=== PATIENT | female | born 1960 | race Caucasian/White ===

== ENCOUNTER 2017-05-17 01:13 | Inpatient (IN) ==
[2017-05-17] MEDS ORDERED: Naloxone 0.4 MG/ML INJ IVP PRN ×2 (05:12→15:07)
[2017-05-17] MEDS ORDERED: Acetaminophen 325 MG TABLET PO PRN ×2 (05:22→15:07)
[2017-05-17] MEDS ORDERED: 0.9 % Sodium Chloride 1,000 ML IVC SCH ×2 (05:30→15:07)
--- NOTE | 2017-05-17 05:44 | Internal Med History&Physical ---
Date of Encounter: 05/17/17 Time of Encounter: 04:20 Assessment and Plan (1) Bilateral arm pain Current visit: Yes Status: Acute Patient has recent flulike symptoms. Has bilateral biceps pain. Consider most likely viral myositis. - Check TSH, cortisol, CK, and ESR. Patient had CRP done in [facility], shows > 18.0 (high). - Give pain medication with Tylenol and Toradol as needed (2) UTI (urinary tract infection) Current visit: Yes Status: Acute Patient has UTI with CT abdomen shows right ureteral stone. Place patient on Rocephin. Consul urology for stone. Follow-up urine culture results Qualifiers: Urinary tract infection type: acute pyelonephritis Qualified Code(s): N10 - Acute pyelonephritis (3) Pneumonia Current visit: Yes Status: Acute CT chest shows left upper lobe pneumonia. Patient has recent flulike symptoms. Consider community acquired pneumonia. - Cover Patient with azithromycin and Rocephin Qualifiers: Pneumonia type: due to Pneumococcus Laterality: left Lung location: upper lobe of lung Qualified Code(s): J13 - Pneumonia due to Streptococcus pneumoniae (4) Ureteral stone Current visit: Yes Status: Acute CT abdomen shows obstructing ureteral stone. - Continue antibiotic for UTI - Urology consult was informed (5) DVT prophylaxis Current visit: Yes Status: Acute Heparin subcutaneously Internal Medicine - H&P: HPI Chief complaint: Bilateral arm pain Admitted From: Home Plans for Post Hospital Care: Home History of present illness: Ms. Lares is a 56 year old female with no known medical history and on no home medication presented to [facility] emergency room for bilateral arm pain. Patient said she has flulike symptoms about one week ago, with laryngitis. Patient's flulike symptoms has improved now. Patient started to have bilateral arm pain about one week ago. Left side is worse than right side. The pain located on bilateral biceps area, with tenderness, patient cannot stretch her left elbow joint to straight. Patient denies injury. Patient also complaining of cough for about 1 to 2 days. No shortness of breath, no chest pain. Patient has a mild on and off nausea but no vomiting. Patient denies abdominal pain. The patient denies urination symptoms. Patient has no diarrhea. In [facility] emergency room, she was a found leukocytosis. Further CT chest shows left upper lobe pneumonia. For further abdominal is CT shows right side obstructing ureteral stone. Patient was treated with Zosyn and IV fluid and transferred to our hospital for urology consult. When I saw patient in the floor, She is in no acute distress. Past Med Surg Social Fam HX - Past Medical History Psychiatric history: no psych history - Social History Smoking Status: Never smoker Alcohol use: rarely Drug use: none - Family History Mother History Unknown: Yes Internal Medicine - H&P: Meds 3 Allergy/AdvReac Type Severity Reaction Status Date / Time No Known Allergies Allergy Verified 05/17/17 04:14 All Systems PM: A 10-system review of systems was performed and is negative for pertinent findings except as documented above in the HPI. - Constitutional Vitals: Temp Pulse Resp BP Pulse Ox 97.7 F 83 16 102/57 96 05/17/17 04:03 05/17/17 04:03 05/17/17 04:03 05/17/17 04:03 05/17/17 04:03 General appearance: Present: A&O X 3, no acute distress, answers questions appropriately - Head Head exam: Present: atraumatic, normocephalic - Eye Eye exam: Present: PERRL, conjuntiva pink, sclera anicteric Pupils: Present: PERRL - Neck Neck exam general surgery: Present: supple, trachea midline. Absent: lymphadenopathy - Respiratory Respiratory exam: Present: CTAB. Absent: accessory muscle use, rales, rhonchi, wheezes - Cardiovascular Cardiovascular exam: Present: RRR, +S1, +S2. Absent: diastolic murmur, gallop, rubs, systolic murmur - GI/Abdominal GI/Abdominal exam: Present: normal bowel sounds, soft, no peritoneal signs. Absent: distended, tenderness Additional comments: CVAT negative bilaterally - Extremities Exam Extremities exam: Present: warm, radial pulses palpable and symmetrical. Absent : calf tenderness, cyanotic, pedal edema Additional comments: Bilateral biceps tenderness. Left arm cannot stretch to straight because of pain. - Neurological Exam Neurological exam: Present: CN II-XII intact, oriented X3, no focal deficits. Absent: pronater drift, facial droop, speech deficit - Skin Skin exam: Present: dry, intact
[2017-05-17] MEDS ORDERED: *HR* Heparin 5,000 UNIT/ML VIAL SQ SCH (06:00)
[2017-05-17] MEDS ORDERED: Azithromycin 500 MG in D5% in Water 250 ML IVPB SCH (06:00)
[2017-05-17] MEDS: Ketorolac 30 MG/ML VIAL IVP PRN ×2 (06:04→12:12)
[2017-05-17 06:37] LABS: Basophils % 0.3 %; Eosinophils # 0.7 K/mcL (0.0-0.6); Eosinophils % 4.4 %; Hematocrit 38.3 % (35.3-44.9); Hemoglobin 12.4 g/dL (11.5-15.4); Immature Granulocytes % 1.3 % (0-4); Lymphocytes # 1.3 K/mcL (0.6-4.6); Lymphocytes % 8.2 %; Mean Corpuscular HGB Conc 32.4 g/dL (31.6-35.5); Mean Corpuscular Hemoglobin 27.7 pg (28.0-33.3); Mean Corpuscular Volume 85.7 fL (83.0-100.0); Mean Platelet Volume 10.2 fL (9.4-12.4); Monocytes # 0.5 K/mcL (0.0-1.3); Monocytes % 3.4 %; Platelet Count 229 K/mcL (140-400); Red Blood Count 4.47 M/mcL (3.82-4.97); Red Cell Distribution Width 12.7 % (11.5-14.5); Segmented Neutrophils % 82.4 %
[2017-05-17 06:42] LABS: Alanine Aminotransferase 35 Units/L (7-52); Albumin 3.6 g/dL (3.5-5.7); Albumin/Globulin Ratio 1.2 (1.1-2.2); Alkaline Phosphatase 219 Units/L (34-104); Aspartate Amino Transferase 20 Units/L (13-39); BUN/Creatinine Ratio 14 (6-26); Bilirubin,Total 0.9 mg/dL (0.3-1.0); Blood Urea Nitrogen 11 mg/dL (6-20); Calcium 9.5 mg/dL (8.6-10.3); Carbon Dioxide 23 mEq/L (23-29); Chloride 107 mEq/L (98-107); Globulin 2.9 g/dL (2.4-3.5); Glucose 90 mg/dL (70-105); Osmolality,Calculated 283 (280-300); Potassium 4.2 mEq/L (3.5-5.1); Sodium 137 mEq/L (136-145); Total Protein 6.5 g/dL (6.4-8.9); eGFR For African Americans > 60 (> 60); eGFR For Non-African Americans > 60 (> 60)
[2017-05-17 06:56] LABS: INR 1.2; Prothrombin Time 12.6 Seconds (9.4-12.1)
[2017-05-17 06:58] LABS: Thyroid Stimulating Hormone 6.184 mcIU/mL (0.340-5.600)
--- NOTE | 2017-05-17 07:11 | Urology - Consult Note ---
Date of Encounter: 05/17/17 Time of Encounter: 07:09 - Assessment and Plan (1) Ureteral stone with hydronephrosis Current Visit: Yes Status: Acute Assessment and plan: I reviewed CT report. 1.6x0.7 cm right UPJ stone with hydronephrosis. report of questionable UTI. pt with leukocytosis. questionable pneumonia. flulike symptoms. I feel pt needs a ureteral stent today. a majority of her symptoms may be from the stone. not safe to perform insitu stone extraction bc of possible infection. procedure discussed including risks of injury to urinary tract and stent complications. Urology CN:HPI Consult date: 05/17/17 Reason for consult Urology: Hydronephrosis History of present illness: 56 yo transfer from [facility]. 2 weeks of pain and flulike symtoms. no hx of stones. CT scan with a 1.6 cm right UPJ stone with moderate hydro. denies fever. malaise, abd pain and B arms are sore. Past Med Surg Social Fam HX - Past Medical History Psychiatric history: no psych history - Social History Smoking Status: Never smoker Alcohol use: rarely Drug use: none - Family History Mother History Unknown: Yes Medications and Allergies 3 Allergy/AdvReac Type Severity Reaction Status Date / Time No Known Allergies Allergy Verified 05/17/17 04:14 Review of Systems - Constitutional fatigue, malaise, no chills - EENT Nose, mouth and throat: no dizziness - Cardiovascular no chest pain - Respiratory no cough - Gastrointestinal abdominal pain, nausea - Genitourinary Genitourinary: flank pain - Musculoskeletal back pain - Integumentary no erythema - Neurological no confusion - Psychiatric no anxiety - Hematologic/Lymphatic no easy bleeding - Allergic/Immunologic no throat swelling Exam Initial Vital Signs Temp Pulse Resp BP Pulse Ox 97.7 F 83 16 102/57 96 05/17/17 04:03 05/17/17 04:03 05/17/17 04:03 05/17/17 04:03 05/17/17 04:03 - General physical appearance Present: well developed, no distress - Eyes Present: PERRL, conjunctiva is clear - ENT Present: normal nares, no hearing loss - Neck Present: no masses, no lymphadenopathy - Respiratory Present: normal respiratory effort - Cardiovascular Cardiovascular exam IM: RRR - Abdomen Abdomen: Present: soft, suprapubic tenderness. Absent: masses - Integumentary Present: no rash, no growths - Neurologic Present: normal coordination. Absent: disoriented, confused Urology Results - Labs 05/17/17 05:51 05/17/17 05:51 Abnormal lab results WBC 15.8 K/mcL (4.3-11.1) H 05/17/17 05:51 MCH 27.7 pg (28.0-33.3) L 05/17/17 05:51 Neutrophils # 13.0 K/mcL (1.6-8.9) H 05/17/17 05:51 Eosinophils # 0.7 K/mcL (0.0-0.6) H 05/17/17 05:51 ESR 81 mm/hr (0-15) H 05/17/17 05:51 PT 12.6 Seconds (9.4-12.1) H 05/17/17 05:51 Alkaline Phosphatase 219 Units/L (34-104) H 05/17/17 05:51 TSH 6.184 mcIU/mL (0.340-5.600) H 05/17/17 05:51 Diabetes panel 05/17/17 Range/Units 05:51 Sodium 137 (136-145) mEq/L Potassium 4.2 (3.5-5.1) mEq/L Chloride 107 (98-107) mEq/L Carbon Dioxide 23 (23-29) mEq/L BUN 11 (6-20) mg/dL Creatinine 0.79 (0.60-1.20) mg/dL Glucose 90 (70-105) mg/dL Calcium 9.5 (8.6-10.3) mg/dL AST 20 (13-39) Units/L ALT 35 (7-52) Units/L Alkaline Phosphatase 219 H (34-104) Units/L Albumin 3.6 (3.5-5.7) g/dL Thyroid panel 05/17/17 Range/Units 05:51 TSH 6.184 H (0.340-5.600) mcIU/mL Calcium panel 05/17/17 Range/Units 05:51 Calcium 9.5 (8.6-10.3) mg/dL Albumin 3.6 (3.5-5.7) g/dL Pituitary panel 05/17/17 05/17/17 Range/Units 05:51 05:51 Sodium 137 (136-145) mEq/L Potassium 4.2 (3.5-5.1) mEq/L Chloride 107 (98-107) mEq/L Carbon Dioxide 23 (23-29) mEq/L BUN 11 (6-20) mg/dL Creatinine 0.79 (0.60-1.20) mg/dL Glucose 90 (70-105) mg/dL Calcium 9.5 (8.6-10.3) mg/dL TSH 6.184 H (0.340-5.600) mcIU/mL Adrenal panel 05/17/17 Range/Units 05:51 Sodium 137 (136-145) mEq/L Potassium 4.2 (3.5-5.1) mEq/L Chloride 107 (98-107) mEq/L Carbon Dioxide 23 (23-29) mEq/L BUN 11 (6-20) mg/dL Creatinine 0.79 (0.60-1.20) mg/dL Glucose 90 (70-105) mg/dL Calcium 9.5 (8.6-10.3) mg/dL Total Bilirubin 0.9 (0.3-1.0) mg/dL AST 20 (13-39) Units/L ALT 35 (7-52) Units/L Alkaline Phosphatase 219 H (34-104) Units/L Albumin 3.6 (3.5-5.7) g/dL All other labs normal. Consult Discharge Plan - Plan Referrals: Abraham Dawson DO [Primary Care Provider] -
[2017-05-17] MEDS ORDERED: cefTRIAXone 1,000 MG in Water for inj. (sterile) 20 ML 10 ML IVP SCH (09:00)
[2017-05-17 09:56] LABS: Bilirubin,Urine Negative (Negative); Blood,Urine Large (Negative); Clarity,Urine Clear (Clear); Color,Urine Yellow (Yellow); Glucose,Urine (UA) Normal (Normal); Ketones,Urine Negative (Negative); Leukocyte Esterase,Urine Small (Negative); Nitrite,Urine Negative (Negative); Protein,Urine 30 mg/dL (Neg-Trace); Specific Gravity,Urine 1.029 (1.010-1.025); Urobilinogen,Urine Normal (Normal)
[2017-05-17 10:00] LABS: Bacteria,Urine None Seen per hpf (None-Few); Hyaline Casts,Urine None Seen per lpf (None-Few); RBC,Urine 50-100 per hpf (0-3); Squamous Epithelial Cell,Urine Many per lpf (None-Few)
--- NOTE | 2017-05-17 12:38 | Anesthesia Evaluation PreOp ---
Date of Encounter: 05/17/17 Time of Encounter: 12:34 - Past History Planned Operation: Cystoscopy with Right Ureteral stent Cardiac History: Denies any Significant Hx Pulmonary History: Denies Any Significant HX CORRECTIONAL AGENCY DIRECTOR History: Denies Any Significant HX Other Medical History: Denies Any Significant HX Anesthesia History: No Prior Anesthetic Complications, Past Anesthesia (Exp. Lap.) : No Alcohol Use: rarely Drug use: none Medications and Allergies No Known Home Drugs 05/17/17 [History] 3 Allergy/AdvReac Type Severity Reaction Status Date / Time No Known Allergies Allergy Verified 05/17/17 08:56 - Meds/Allergy Pre-op Review Medications Reviewed: Yes Allergies Reviewed: Yes Beta Blockers on Current Med List: No Anesthesia Results - Labs 05/17/17 05:51 05/17/17 05:51 Anesthesia Exam Vital Signs/O2 Sat, Most Current Temp Pulse Resp BP Pulse Ox 98.5 F 100 16 103/50 100 05/17/17 11:00 05/17/17 11:00 05/17/17 11:00 05/17/17 11:00 05/17/17 11:00 Height: 5'3'' Weight: 166# NPO (# of Hours): > 8 hrs Pain Scale: 0 Pain Scale Used: Numeric (1 - 10) - HEENT Pupil (Motor): Pupils equal, EOMI Mallampati: II Teeth: Edentulous Denture Type: Upper: Complete, Lower: Complete Oral Opening: Greater than 3 - CORRECTIONAL AGENCY DIRECTOR LOC: Oriented CORRECTIONAL AGENCY DIRECTOR Motor: Normal RUE, Normal LUE, Normal RLE, Normal LLE, Normal Face CORRECTIONAL AGENCY DIRECTOR Sensory: Normal: RUE, LUE, RLE, LLE, Face - Cardiac Rhythm: Regular Murmur: None JVD: No Carotid Bruit: No - Pulmonary Breath Sounds: bilateral Clear Respiratory Effort: Symmetrical Anesthesia Assess/Plan ASA Score: 1 Modified Milagros Scale for Level of Consciousness: Cooperative, oriented, and tranquil Anesthetic Plan: General Autologous Blood: Yes Monitoring Plan: Standard Monitors Recovery Plan: PACU
[2017-05-17 12:39] LABS: Triiodothyronine (T3) Free 2.47 pg/mL (2.50-3.90)
[2017-05-17] MEDS ORDERED: Isovue-300 50 ML VIAL IVP ONE (13:20)
--- NOTE | 2017-05-17 13:21 | Event Note ---
Date of Encounter: 05/17/17 Time of Encounter: 13:20 I saw and evaluated Ms. Lares in preop. She has a large right renal stone. I recommend proceeding with a cystoscopy and right ureteral stent placement. I informed her of the risks of the surgery including but not limited to bleeding, infection, injury to other structures, need for further procedures, stent irritation, ureteral perforation, need for nephrostomy tube, need for open repair, risks unforeseen, and the risk of anesthesia. He is willing to proceed.
[2017-05-17] MEDS ORDERED: *HR* Midazolam HCl 2 MG/2 ML VIAL ONE (13:22)
[2017-05-17] MEDS ORDERED: *HR* Propofol 200 MG/20 ML VIAL IVP ONE (13:22)
[2017-05-17] MEDS ORDERED: *HR* FentaNYL (PF) 100 MCG/2 ML VIAL ONE (13:22)
[2017-05-17] MEDS ORDERED: Dexamethasone 4 MG/ML VIAL ONE (13:24)
[2017-05-17] MEDS ORDERED: Ondansetron 4 MG/2 ML VIAL ONE (13:24)
[2017-05-17] MEDS ORDERED: Acetaminophen IV 1,000 MG/100 ML INFUS..BTL ONE (13:25)
[2017-05-17] MEDS ORDERED: *HR* PHENYLEPHRINE 1,000 MCG/10 ML SYRINGE IVP ONE (13:50)
[2017-05-17] MEDS ORDERED: MORPHINE SUL Oral CONC 10 MG/0.5 ML ORAL.SYG SL PRN (13:55)
[2017-05-17] MEDS ORDERED: *HR* OxyCODONE Immed Rel 5 MG TABLET PO PRN (13:55)
[2017-05-17] MEDS ORDERED: *HR* Promethazine 25 MG/ML VIAL IVP PRN (13:55)
[2017-05-17] MEDS ORDERED: Dexamethasone 4 MG/ML VIAL IVP ONE (13:55)
[2017-05-17] MEDS ORDERED: Ketorolac 30 MG/ML VIAL ONE (13:56)
--- NOTE | 2017-05-17 14:08 | Operative Note ---
Date of procedure: 05/17/17 Pre-op diagnosis: Right ureteropelvic junction stone, possible UTI Post-op diagnosis: same Procedure: Cystoscopy, right ureteral stent placement. Implants: 6 Nepalese x 24 cm JJ stent Complications: none Anesthesia: GETA Surgeon: Juanito Gonzalez Was there an assistant superintendent present: No Estimated blood loss (cc): 1 Specimen: none Condition: stable Disposition: PACU Procedure in Detail: Indications: Jamee is a 56-year-old woman who has a history of nephrolithiasis. She had a CT which showed a right renal pelvis stone. She elected to undergo a cystoscopy and right ureteral stent placement. She was aware of the risks of the procedure including but not limited to bleeding, infection, injury to other structures, need for further procedures, stent irritation, need for nephrostomy tube, need for open repair, risks otherwise unforeseen, and the risk of anesthesia. She is willing to proceed. Procedure in Detail: After informed consent was obtained the patient was brought back to the operating room and placed in supine position. A time out was performed. General anesthesia was administered and a LMA was placed. She was then placed in the lithotomy position. She was prepped and draped in the usual sterile fashion. Cystoscopy was performed. The anterior urethra was normal. There was no evidence of bladder tumors. The ureteral orifices were in the normal orthotopic position. There was no duplication of the ureteral orifices. The Zip wire was placed in the right ureteral orifice. The wire went past the stone. A 6 Nepalese by 24cm JJ stent was then placed. The dangle strings were removed. A Almodovar catheter was then placed. The patient was then awakened from general anesthesia and brought to recovery room in good condition. All sponge, needle, and instrument counts were correct.
--- NOTE | 2017-05-17 14:34 | Anesthesia Evaluation Post Op ---
Date of Encounter: 05/17/17 Time of Encounter: 14:33 - Vital Signs Vital Signs: Vital Signs/O2 Sat, Most Current Temp Pulse Resp BP Pulse Ox 98.2 F 102 20 91/54 95 05/17/17 14:11 05/17/17 14:21 05/17/17 14:21 05/17/17 14:21 05/17/17 14:21 - Lungs Lungs: Clear Ascult./Percussion - Airway Airway: Non-obstructed - Cardiovascular Regular Rate - Mental Status Mental Status: Alert & Oriented, Answers Appropriately - Pain Pain Scale: 0 Pain Scale used: Numeric (1 - 10) - Nausea Vomiting Nausea Vomiting: Not Present - Hydration Hydration: Ice chips, Almodovar catheter - Discharge PostOp Status: Transfer Patient to floor
[2017-05-17] MEDS ORDERED: Ketorolac 30 MG/ML VIAL IVP PRN (15:07)
[2017-05-17] MEDS ORDERED: *HR* OxyCODONE/APAP 5/325 TABLET PO PRN (15:07)
[2017-05-17] MEDS: *HR* Heparin 5,000 UNIT/ML VIAL SQ SCH (17:55)
--- NOTE | 2017-05-17 19:45 | Event Note ---
Date of Encounter: 05/17/17 Time of Encounter: 19:40 S: She is s/p stents by urology. Feeling much better. Bilateral arm pain resolved. Now has nicole. On rocephin and azithromycin for pneumonia and ?UTI. She had elevated TSH this AM; free T3 and T4 ordered. No new complaints at this time. O: Vitals - Temp 98.5 degrees F., HR 100, RR 16, BP 103/50, O2 sat 100% on RA HEENT: NCAT, PERRLA, EOMI, hearing grossly intact, oropharynx benign Resp: CTAB, normal WOB, no W/R/R CV: RRR, normal S1 and S2, no M/R/G GI: Soft, NT/ND, no masses, normal BS, no HSP Skin: Warm, dry, no rashes/lesions/ulcers Psych: Normal mood and affect, no depression or anxiety A/P: 1) Ureteral Stone: S/P stent. Now has nicole. Doing better. Will monitor overnight. 2) CAP: Continue azithromycin and rocephin. 3) ?UTI: Continue rocephin. 4) Elevated TSH: Follow up on free T3/T4. Consider starting levothyroxine if low.
[2017-05-18 05:41] LABS: Basophils % 0.2 %; Hemoglobin 12.9 g/dL (11.5-15.4); Immature Granulocytes % 1.8 % (0-4); Mean Platelet Volume 10.3 fL (9.4-12.4); Red Cell Distribution Width 12.6 % (11.5-14.5)
[2017-05-18 05:43] LABS: Basophils # 0.1 K/mcL (0.0-0.2); Eosinophils # 0.1 K/mcL (0.0-0.6); Eosinophils % 0.4 %; Hematocrit 39.1 % (35.3-44.9); Lymphocytes # 0.7 K/mcL (0.6-4.6); Lymphocytes % 2.6 %; Monocytes # 0.5 K/mcL (0.0-1.3); Platelet Count 240 K/mcL (140-400)
[2017-05-18 05:54] LABS: BUN/Creatinine Ratio 18 (6-26); Blood Urea Nitrogen 13 mg/dL (6-20); Calcium 9.4 mg/dL (8.6-10.3); Carbon Dioxide 24 mEq/L (23-29); Chloride 107 mEq/L (98-107); Glucose 118 mg/dL (70-105); Osmolality,Calculated 289 (280-300); Potassium 4.4 mEq/L (3.5-5.1); Sodium 139 mEq/L (136-145); eGFR For African Americans > 60 (> 60); eGFR For Non-African Americans > 60 (> 60)
[2017-05-18] MEDS ORDERED: Azithromycin 500 MG in D5% in Water 250 ML IVPB SCH (06:00)
[2017-05-18] MEDS: *HR* Heparin 5,000 UNIT/ML VIAL SQ SCH ×2 (06:03→22:06)
[2017-05-18 06:19] LABS: Neutrophils # 23.3 K/mcL (1.6-8.9)
[2017-05-18 06:20] LABS: Platelet Estimate Normal (Normal)
--- NOTE | 2017-05-18 07:47 | Urology Progress Note ---
Date of Encounter: 05/18/17 Time of Encounter: 07:45 - Assessment and Plan (1) Ureteral stone with hydronephrosis Current Visit: Yes Status: Resolved Assessment and plan: s/p stent placement. urine clear. will remove cath. no further intervention from standpoint. will need outpatient stone surgery. will arrange and contact patient. ok to discharge from urology standpoint when other medical issues are stable. Progress Note Subjective: feels better Narrative: feeels better. decreasing arm pain. Objective Initial Vital Signs Temp Pulse Resp BP Pulse Ox 97.7 F 83 16 102/57 96 05/17/17 04:03 05/17/17 04:03 05/17/17 04:03 05/17/17 04:03 05/17/17 04:03 - General physical appearance Present: no distress - Genitourinary Urine Appearance: Present: Clear - Labs 05/18/17 05:01 05/18/17 05:01 Diabetes panel 05/18/17 Range/Units 05:01 Sodium 139 (136-145) mEq/L Potassium 4.4 (3.5-5.1) mEq/L Chloride 107 (98-107) mEq/L Carbon Dioxide 24 (23-29) mEq/L BUN 13 (6-20) mg/dL Creatinine 0.72 (0.60-1.20) mg/dL Glucose 118 H (70-105) mg/dL Calcium 9.4 (8.6-10.3) mg/dL Thyroid panel 05/17/17 Range/Units 05:51 TSH 6.184 H (0.340-5.600) mcIU/mL Calcium panel 05/18/17 Range/Units 05:01 Calcium 9.4 (8.6-10.3) mg/dL Pituitary panel 05/17/17 05/18/17 Range/Units 05:51 05:01 Sodium 139 (136-145) mEq/L Potassium 4.4 (3.5-5.1) mEq/L Chloride 107 (98-107) mEq/L Carbon Dioxide 24 (23-29) mEq/L BUN 13 (6-20) mg/dL Creatinine 0.72 (0.60-1.20) mg/dL Glucose 118 H (70-105) mg/dL Calcium 9.4 (8.6-10.3) mg/dL TSH 6.184 H (0.340-5.600) mcIU/mL Adrenal panel 05/18/17 Range/Units 05:01 Sodium 139 (136-145) mEq/L Potassium 4.4 (3.5-5.1) mEq/L Chloride 107 (98-107) mEq/L Carbon Dioxide 24 (23-29) mEq/L BUN 13 (6-20) mg/dL Creatinine 0.72 (0.60-1.20) mg/dL Glucose 118 H (70-105) mg/dL Calcium 9.4 (8.6-10.3) mg/dL - VTE Documentation of Mechanical Device: Intermittent pneumatic compression device Consult Discharge Plan - Plan Referrals: Abraham Dawson DO [Primary Care Provider] -
[2017-05-18] MEDS ORDERED: cefTRIAXone 1,000 MG in Water for inj. (sterile) 20 ML 10 ML IVP SCH (09:00)
--- NOTE | 2017-05-18 10:39 | Internal Med Progress Note ---
<Luis Farr R - Last Filed: 05/18/17 13:25> Date of Encounter: 05/18/17 - Constitutional Vitals: Temp Pulse Resp BP Pulse Ox 98.1 F 94 15 99/54 95 05/18/17 11:33 05/18/17 11:33 05/18/17 07:41 05/18/17 11:33 05/18/17 11:33 Internal Medicine: Result - Labs CBC & Chem 7: 05/18/17 05:01 05/18/17 05:01 Labs: Short CBC 05/18/17 Range/Units 05:01 WBC 25.1 H D (4.3-11.1) K/mcL Hgb 12.9 (11.5-15.4) g/dL Hct 39.1 (35.3-44.9) % Plt Count 240 (140-400) K/mcL Neutrophils # 23.3 H (1.6-8.9) K/mcL BMP 05/18/17 05:01 Sodium 139 Potassium 4.4 Chloride 107 Carbon Dioxide 24 BUN 13 Creatinine 0.72 Glucose 118 H Calcium 9.4 - ABG Interpretation ABG results: PT/INR, D-dimer PT 12.6 Seconds (9.4-12.1) H 05/17/17 05:51 - Impressions Impressions Fluoroscopy 05/17/17 00:00 IMPRESSION: Intraprocedural fluoroscopic spot images as above. See separate procedure report for more information. D/ / Jamie Huizar MD / Jamie Huizar MD Interpreting Provider: Jamie Huizar MD X-Ray 05/17/17 00:00 IMPRESSION: Intraprocedural fluoroscopic spot images as above. See separate procedure report for more information. D/ / Jamie Huizar MD / Jamie Huizar MD Interpreting Provider: Jamie Huizar MD Consult Discharge Plan - Plan Referrals: Abraham Dawson, [Primary Care Provider] - - Attending Attestation I performed an independent interview and exam of this pt. I agree with the findings, assessment and plan of Dr. Roberson, internal medicine financial intern. DC nicole today. Urol input appreciated. PT is doing well and may potentially be dc today. No cx data available. May consider dc on Levaquin to cover for UTI and CAP. Will discuss later on rounds today. Follow up CXR in 4 weeks. Urology follow up as planned. Arm pain is resolving. No clear etiology. <Johnny Roberson - Last Filed: 05/18/17 16:00> Date of Encounter: 05/18/17 Time of Encounter: 09:40 - Assessment and plan (1) Pneumonia Current Visit: Yes Status: Acute Assessment and plan: Community acquired pneumonia, improving WBC increased to 25, however clinically the patient improved I believe that the leukocytosis is likely reactive in nature, and in response to ureteral stenting The patient continues to have cough, however she feels that it is improving Azithromycin + Rocephin Day 2 Will transition to PO Levaquin, possible D/C Today. Qualifiers: Pneumonia type: due to Pneumococcus Laterality: left Lung location: upper lobe of lung Qualified Code(s): J13 - Pneumonia due to Streptococcus pneumoniae (2) Ureteral stone with hydronephrosis Current Visit: Yes Status: Resolved Assessment and plan: s/p Right ureteral stent Symptoms have largely resolved, she is no longer having significant pain WBC has increased, but clinically does not appear to have infection Urine output is sufficient Patient will require outpatient follow-up with urology (3) Hypothyroidism Current Visit: Yes Status: Acute Assessment and plan: Hypothyroidism not previously diagnosed Tsh 6.18, Low Free T3 and T4 I will start the patient on 50mcg levothyroxine She will require 3 week follow-up with PCP Qualifiers: Hypothyroidism type: acquired Qualified Code(s): E03.9 - Hypothyroidism, unspecified (4) Bilateral arm pain Current Visit: Yes Status: Acute Assessment and plan: Resolved (5) DVT prophylaxis Current Visit: Yes Status: Acute Assessment and plan: Heparin - Subjective Interval history: The patient says that she's feeling much better today. She still has some soreness in her arms, however it has largely resolved. She continues to have some cough, but it is not bothersome, and her abdominal and back pain have improved dramatically. - Constitutional Vitals: Temp Pulse Resp BP Pulse Ox 98.0 F 86 15 113/67 97 05/18/17 07:41 05/18/17 07:41 05/18/17 07:41 05/18/17 07:41 05/18/17 07:41 General appearance: Present: A&O X 3, no acute distress, answers questions appropriately Internal Medicine: Result - Labs CBC & Chem 7: 05/18/17 05:01 05/18/17 05:01 Labs: Short CBC 05/18/17 Range/Units 05:01 WBC 25.1 H D (4.3-11.1) K/mcL Hgb 12.9 (11.5-15.4) g/dL Hct 39.1 (35.3-44.9) % Plt Count 240 (140-400) K/mcL Neutrophils # 23.3 H (1.6-8.9) K/mcL BMP 05/18/17 05:01 Sodium 139 Potassium 4.4 Chloride 107 Carbon Dioxide 24 BUN 13 Creatinine 0.72 Glucose 118 H Calcium 9.4 - ABG Interpretation ABG results: PT/INR, D-dimer PT 12.6 Seconds (9.4-12.1) H 05/17/17 05:51 - Impressions Impressions Fluoroscopy 05/17/17 00:00 IMPRESSION: Intraprocedural fluoroscopic spot images as above. See separate procedure report for more information. D/ / Jamie Huizar MD / Jamie Huizar MD Interpreting Provider: Jamie Huizar MD X-Ray 05/17/17 00:00 IMPRESSION: Intraprocedural fluoroscopic spot images as above. See separate procedure report for more information. D/ / Jamie Huizar MD / Jamie Huizar MD Interpreting Provider: Jamie Huizar MD - VTE Documentation of Mechanical Device: Intermittent pneumatic compression device
[2017-05-18] MEDS: levoFLOXacin 750 MG TABLET PO SCH (16:17)
[2017-05-18] MEDS: *HR* OxyCODONE/APAP 5/325 TABLET PO PRN (16:23)
[2017-05-18] MEDS ORDERED: Ondansetron 4 MG/2 ML VIAL IVP PRN (22:25)
[2017-05-18] MEDS ORDERED: Ondansetron 4 MG/2 ML VIAL ONE (22:30)
[2017-05-19] MEDS: *HR* OxyCODONE/APAP 5/325 TABLET PO PRN (05:25)
[2017-05-19] MEDS: *HR* Heparin 5,000 UNIT/ML VIAL SQ SCH (05:26)
[2017-05-19 08:26] LABS: Basophils % 0.3 %; Eosinophils # 1.1 K/mcL (0.0-0.6); Eosinophils % 7.4 %; Hematocrit 37.4 % (35.3-44.9); Hemoglobin 11.9 g/dL (11.5-15.4); Immature Granulocytes % 1.1 % (0-4); Lymphocytes % 6.7 %; Mean Corpuscular HGB Conc 31.8 g/dL (31.6-35.5); Mean Corpuscular Hemoglobin 27.4 pg (28.0-33.3); Mean Platelet Volume 10.2 fL (9.4-12.4); Monocytes # 0.4 K/mcL (0.0-1.3); Monocytes % 2.7 %; Neutrophils # 12.3 K/mcL (1.6-8.9); Platelet Count 273 K/mcL (140-400); Red Blood Count 4.35 M/mcL (3.82-4.97); Red Cell Distribution Width 12.6 % (11.5-14.5); Segmented Neutrophils % 81.8 %
[2017-05-19] MEDS: levoFLOXacin 750 MG TABLET PO SCH (09:33)
--- NOTE | 2017-05-19 10:46 | Discharge Summary ---
<Luis Farr - Last Filed: 05/19/17 12:37> Orders not resulted at time of discharge: Pending orders 05/18/17 16:48 Culture,Blood,Additional [BC] Stat Date of Encounter: 05/19/17 Hospital course: Ms. Lares is a 56 year old female - Time Spent with Patient Total time spent providing and/or coordinating discharge services: - Discharge Medications Prescriptions: levoFLOXacin [Levaquin] 750 mg PO DAILY #3 tablet Levothyroxine [Synthroid] 50 mcg PO DAILY #30 tablet OxyCODONE/APAP 5/325 [Percocet 5/325 MG] 2 each PO Q6H PRN 2 Days #8 tablet PRN Reason: Severe Pain Home Medications: Acetaminophen [Tylenol] 650 mg PO Q6HR PRN tablet 05/19/17 [Rx] Levothyroxine [Synthroid] 50 mcg PO DAILY #30 tablet 05/19/17 [Rx] OxyCODONE/APAP 5/325 [Percocet 5/325 MG] 2 each PO Q6H PRN 2 Days #8 tablet [Rx] levoFLOXacin [Levaquin] 750 mg PO DAILY #3 tablet 05/19/17 [Rx] Allergies/Adverse Reactions: 3 Allergy/AdvReac Type Severity Reaction Status Date / Time No Known Allergies Allergy Verified 05/17/17 08:56 Date of admission: 05/17/17 05:12 Primary care physician: Abraham Dawson Consults: 05/17/17 05:29 Consult to Urology [CONS] Routine Consulting Provider: Urology Katie Reason for Consult: Right side ureter stone Call Completed: Yes - Constitutional Vitals: Temp Pulse Resp BP Pulse Ox 97.8 F 90 18 90/51 92 05/19/17 11:05 05/19/17 11:05 05/19/17 11:05 05/19/17 11:05 05/19/17 11:05 - Patient Status Disposition: Home, Self-Care - Ambulatory Orders Ambulatory Orders: XR chest 2V [XR] Time Frame: 1 Month, Location: ANY - Discharge Instructions Instructions: Oxycodone/Acetaminophen (By mouth), Levothyroxine (By mouth), Levofloxacin (By mouth), Kidney Stones (DC), Kidney Stones (GEN), Urinary Tract Infection in Women (DC), Pneumonia (DC) Follow Up With: Allyssa Simpson CNP [Advanced Practice Nurse] - 06/08/17 9:00 am Abraham Hoyt MD [Partnered Physician] - 05/31/17 9:30 am Additional Instructions: Please have your primary care physician schedule a Chest X-Ray in 1 month. This is to followup on your pneumonia. Prescription was given to you. - Attending Attestation I performed an independent interview and examine this patient. I agree with the findings, assessment, and plan of Dr. Roberson, internal medicine gallery intern. Patient will continue on Levaquin to complete a week therapy for urinary tract infection as well as suspected pneumonia. Will need a follow-up chest x-ray in 4 weeks. She will follow up with urology as planned. She was feeling well without any complaints at day of discharge. Patient is deemed stable for discharge. 36 minutes spent on discharge and coordination of care <Johnny Roberson - Last Filed: 05/19/17 16:15> - NOTES TO OUTPATIENT PROVIDER Notes to Outpatient Provider: The patient will require follow-up with pcp and with urology in 3-5 days. It was found that the patient had hypothyroidism, and she was started on levothyroxine. She has 3 days of antibiotics left for community-acquired pneumonia. There is an order for outpatient chest x-ray follow-up in 4 weeks. Orders not resulted at time of discharge: Pending orders 05/18/17 16:48 Culture,Blood,Additional [BC] Stat Date of Encounter: 05/19/17 Time of Encounter: 08:20 - Discharge Diagnosis (1) Pneumonia Priority: Primary Status: Acute Qualifiers: Pneumonia type: due to Pneumococcus Laterality: left Lung location: upper lobe of lung Qualified Code(s): J13 - Pneumonia due to Streptococcus pneumoniae (2) Ureteral stone with hydronephrosis Priority: Primary Status: Resolved (3) Hypothyroidism Priority: Secondary Status: Acute Qualifiers: Hypothyroidism type: acquired Qualified Code(s): E03.9 - Hypothyroidism, unspecified (4) Bilateral arm pain Priority: Secondary Status: Acute Hospital course: Ms. Lares is a 56 year old female with no known medical history and on no home medication presented to [facility] emergency room for bilateral arm pain. Patient said she has flulike symptoms about one week ago, with laryngitis. Patient's flulike symptoms has improved now. Patient started to have bilateral arm pain about one week ago. Left side is worse than right side. The pain located on bilateral biceps area, with tenderness, patient cannot stretch her left elbow joint to straight. Patient denies injury. Patient also complaining of cough for about 1 to 2 days. No shortness of breath, no chest pain. Patient has a mild on and off nausea but no vomiting. CT of the abdomen did show significant right ureteral stone with hydronephrosis. Urology was consulted and determined that the patient would require a stent, which they completed. Additionally, the patient was found to have a pneumonia in the left lung. She was started on Levaquin which did seem to help. The next day the patient was significantly improved compared to previous in terms of both pain and respiratory status and cough. The patient continued to improve despite elevated white blood cell count , which I do believe was reactive in nature. I felt that the patient was stable for discharge to primary care and outpatient urology, the patient understood and agreed with this plan. She will require follow-up with urology due to need for outpatient surgery for stone. All concerns were addressed and all questions were answered. Discharge discussed with: patient, family, nurse, case management, [employer] sales consultant - Time Spent with Patient Total time spent providing and/or coordinating discharge services: Date of admission: 05/17/17 05:12 Primary care physician: Abraham Dawson Consults: 05/17/17 05:29 Consult to Urology [CONS] Routine Consulting Provider: Urology Katie Reason for Consult: Right side ureter stone Call Completed: Yes Discharging clinician: Johnny Roberson Anticipated date of discharge: 05/19/17 - Constitutional Vitals: Temp Pulse Resp BP Pulse Ox 97.9 F 96 16 102/51 98 05/19/17 07:34 05/19/17 07:34 05/19/17 07:34 05/19/17 07:34 05/19/17 07:34 General appearance: Present: A&O X 3, no acute distress, answers questions appropriately Exam: Gen: Vitals noted. No acute distress. AAOx3 HEENT: Normocephalic, atraumatic Neck: Supple. No adenopathy. Cardiac: RRR, no murmur, +S1/S2 Pulmonary: Diffuse left sided crackles mildly improved Abdomen: Soft, non-tender, no masses felt MSK: ROM intact, no joint swelling noted. Minimal muscle pain in upper extremities while moving. Extremities: no BLE edema, nontender calf, no cyanosis or clubbing Neuro: A&Ox3, moves all extremities, no focal deficits Psych: Appropriate mood and behavior - Patient Status Functional capacity at discharge: independent ambulation Overall status at discharge: patient is progressing back to baseline - Diet and Activity Activity: increase activity as tolerated Diet: advance to your usual diet - VTE Documentation of Mechanical Device: Intermittent pneumatic compression device
[2017-05-19 11:07] VITALS: BP 90/51
== END 2017-05-19 14:21 | disposition home or self-care (01) | DRG 463 ==
LOC: 2NENU
PROVIDERS: ADMIT Internal Medicine; ATTEND Family Medicine